=== PATIENT | female | born 2000 | race African-American/Black ===

== ENCOUNTER 2019-02-25 12:15 | Emergency (ER) | payer MEDICAID, OTHER ==
[~2019-02-25] VITALS: Ht 160 cm; Wt 61.9 kg
--- NOTE | 2019-02-25 12:31 | NUR ---
PT STATES SHE WAS SEEN HERE BEFORE FOR SAME COMPLAINT AND WAS GIVEN WRIST SPLINTS AND MEDICATION. MOVES WRISTS WITHOUT DIFFICULTY, ONLY C/O PAIN WHEN LIFTING OBJECTS. ALSO C/O HEADACHE.
--- NOTE | 2019-02-25 12:33 | NUR ---
ER PA AT NS NOW.
[2019-02-25] MEDS ORDERED: IBUPROFEN 200 MG TABLET ONE (12:41)
[2019-02-25] MEDS ORDERED: IBUPROFEN 600 MG TABLET PO ONE (13:00)
[2019-02-25 13:08] VITALS: BP 123/83
--- NOTE | 2019-02-25 13:12 | NUR ---
D/C INSTRUCTIONS, MEDS & F/U APPT RV'WD WITH PT, SHE VERBALIZES UNDERSTANDING. RX GIVEN X1. PT AMBULATED OUT OF ED WITHOUT DIFFICULTY.
== END 2019-02-25 13:32 | disposition home or self-care (01) ==
LOC: ED 13:17
DX: G56.03 Carpal tunnel syndrome, bilateral upper limbs (principal); G89.29 Other chronic pain; M25.532 Pain in left wrist; M25.531 Pain in right wrist; J45.909 Unspecified asthma, uncomplicated
CPT/HCPCS: 29260; 99283

== ENCOUNTER 2019-03-05 09:13 | Emergency (ER) | payer MEDICAID, OTHER ==
[~2019-03-05] VITALS: Ht 160 cm; Wt 62.3 kg
--- NOTE | 2019-03-05 09:35 | NUR ---
Pt changing into hospital gown. Friend at bedside. Pt c/o foul smelling clear vaginal discharge and concern for possible . Pt denies pain. Lab at bedside. NADN. No needs expressed UA provided with instructions. Pt verbalized understaning.
[2019-03-05 09:56] LABS: BASOPHILS # (AUTO) 0.04 x10^3/uL (0-0.3); BASOPHILS % (AUTO) 1 % (0-1); EOSINOPHILS # (AUTO) 0.19 x10^3/uL (0-0.8); EOSINOPHILS % (AUTO) 3 % (1-7); LYMPHOCYTES # (AUTO) 3.13 x10^3/uL (1-6.1); LYMPHOCYTES % (AUTO) 49 % (22-44); MD NO; MEAN CORPUSCULAR HEMOGLOBIN 31.7 pg (27.0-34.8); MEAN CORPUSCULAR HGB CONC 33.4 g/dL (32.4-35.8); MEAN CORPUSCULAR VOLUME 94.9 fL (80-100); MEAN PLATELET VOLUME 8.2 fL (7.4-10.4); MONOCYTES # (AUTO) 0.47 x10^3/uL (0-1.4); MONOCYTES % (AUTO) 8 % (2-9); NEUTROPHILS # (AUTO) 2.52 x10^3/uL (1.8-8.0); NEUTROPHILS % (AUTO) 40 % (42-75); PLATELET COUNT 380 x10^3/uL (130-400); RED BLOOD COUNT 4.14 x10^6/uL (3.82-5.3)
[2019-03-05] MEDS ORDERED: RESCUE INHALER (09:58)
[2019-03-05 10:10] LABS: ALBUMIN 3.9 g/dL (3.4-5.0); ANION GAP 6 mmol/L (5-15); CHLORIDE 109 mmol/L (98-107); CREATININE 0.79 mg/dL (0.55-1.02)
[2019-03-05 10:23] LABS: MICROSCOPIC INDICATED
[2019-03-05 10:33] LABS: CULTURE INDICATED? YES
[2019-03-05 10:47] VITALS: BP 119/77
--- NOTE | 2019-03-05 10:58 | NUR ---
Patient given discharge instructions and they have confirmed that they understand the instructions. Patient ambulatory with steady gait. Pt left with D/C paperwork, prescription, and all personal belongings. NADN. No needs expressed.
== END 2019-03-05 11:00 | disposition home or self-care (01) ==
LOC: ED 09:54
DX: N30.00 Acute cystitis without hematuria (principal); J45.909 Unspecified asthma, uncomplicated
CPT/HCPCS: 36415; 80048; 81001; 82040; 84703; 85025; 87086; 87491; 87591; 99283

== ENCOUNTER 2019-03-10 11:37 | Emergency (ER) | payer SELFPAY ==
[~2019-03-10] VITALS: Ht 160 cm; Wt 61.0 kg
[~2019-03-10 11:37] MED LIST: RESCUE INHALER
[2019-03-10 11:42] VITALS: BP 129/70
--- NOTE | 2019-03-10 11:54 | NUR ---
first contact with pt. Pt was diagnose w/ chlamydia & is unable to swallow her antibiotic. no sx. pt's aox4. resps even and unlabored.
[2019-03-10] MEDS ORDERED: AZITHROMYCIN 500 MG TABLET ONE ×2 (12:22→12:38)
[2019-03-10] MEDS ORDERED: CEFTRIAXONE 250 MG ONE (12:22)
[2019-03-10] MEDS: AZITHROMYCIN 500 MG TABLET PO ONE ×2 (12:26→12:55)
[2019-03-10] MEDS ORDERED: CEFTRIAXONE 250 MG IM ONE (12:30)
--- NOTE | 2019-03-10 12:33 | NUR ---
PT WAS NOT ABLE TO SWALLOW ABX PILLS. PA NOTIFIED. PT NEEDS POWDER OR LIQUID ABX.
--- NOTE | 2019-03-10 12:33 | NUR ---
PT MEDICATED PER EMAR. PT TOLERATED WELL.
--- NOTE | 2019-03-10 12:54 | NUR ---
TASK RN: SPOKE WITH PHARMACY ABLE TO CRUSH MEDICATIONS. MED CRUSHED AND ADMINISTERED TO PT.
--- NOTE | 2019-03-10 13:06 | NUR ---
TASK RN: Patient/Caregiver given discharge instructions and they have confirmed that they understand the instructions. Patient ambulatory with steady gait. PT LEFT WITH ALL PERSONAL BELONGINGS.
== END 2019-03-10 13:08 | disposition home or self-care (01) ==
LOC: ED 13:00
DX: A56.01 Chlamydial cystitis and urethritis (principal); J45.909 Unspecified asthma, uncomplicated
CPT/HCPCS: 96372; 99283; J0696